=== PATIENT | male | born 1990 | race Caucasian/White ===

== ENCOUNTER → 2016-06-10 | Outpatient (CLI) | payer OTHER ==
[~2016-06-10] MED LIST: ASPCH81X PO; DIGO0.052; DIGO0.2519 PO; ENAL10TA88 PO
[2016-06-10 12:07] LABS: BASO % 0.5 %; BASO ABS # 0.03 K/uL (0-0.2); COMPLETE YES; EOS % 1.1 %; HEMATOCRIT 49.8 % (42-52); LYMPH % 25.2 %; LYMPH ABS # 1.61 K/uL (1.2-3.4); MEAN CELL VOLUME 89.6 fL (80-100); MEAN CORPUSCULAR HEMOGLOBIN 31.8 pg (25-34); MEAN CORPUSCULAR HGB CONC 35.5 g/dl (32-36); MEAN PLATELET VOLUME 11.8 fL (7.4-10.4); MONO % 6.3 %; NEUT % 66.9 %; PLATELET COUNT 167 K/uL (130-400); RED BLOOD COUNT 5.56 M/uL (4.7-6.1); WHITE BLOOD COUNT 6.38 K/uL (4.8-10.8)
[2016-06-10 12:27] LABS: ALT/SGPT 44 U/L (12-78); BLOOD UREA NITROGEN 9 mg/dl (7-18); BUN/CREATININE RATIO 10.7 (10-20); CALCIUM 8.8 mg/dl (8.5-10.1); CARBON DIOXIDE 26 mmol/L (21-32); CHLORIDE 109 mmol/L (98-107); CREATININE 0.88 mg/dl (0.60-1.40); GLUCOSE 78 mg/dl (70-99); POTASSIUM 4.1 mmol/L (3.5-5.1); SODIUM 142 mmol/L (136-145); URIC ACID 4.4 mg/dl (2.6-7.2)
[2016-06-10 12:30] LABS: ALB/GLOB RATIO 1.2 (0.9-2); ALKALINE PHOSPHATASE 59 U/L (45-117); AST/SGOT 21 U/L (15-37)
== END | disposition home or self-care (01) ==
LOC: C.LAB1850 11:01
PROVIDERS: ATTEND Family Medicine
DX: M79.676 Pain in unspecified toe(s) (principal); R10.9 Unspecified abdominal pain

== ENCOUNTER 2016-06-20 10:56 | Observation (INO) | payer BC, OTHER ==
[~2016-06-20] VITALS: Ht 168.9 cm; Wt 60.9 kg
[2016-06-20 11:56] LABS: BASO % 0.3 %; BASO ABS # 0.02 K/uL (0-0.2); COMPLETE YES; EOS % 0.3 %; IG% 0.1 %; LYMPH % 24.4 %; LYMPH ABS # 1.73 K/uL (1.2-3.4); MEAN CELL VOLUME 86.5 fL (80-100); MEAN CORPUSCULAR HEMOGLOBIN 31.8 pg (25-34); MEAN CORPUSCULAR HGB CONC 36.7 g/dl (32-36); MEAN PLATELET VOLUME 11.9 fL (7.4-10.4); MONO % 7.6 %; NEUT % 67.3 %; PLATELET COUNT 197 K/uL (130-400); RED BLOOD COUNT 6.01 M/uL (4.7-6.1)
--- NOTE | 2016-06-20 12:04 | DIAGNOSTIC IMAGING REPORT ---
CHEST 2 VIEWS ROUTINE CLINICAL HISTORY: Chest pain. Shortness of breath. COMPARISON STUDY: Chest radiograph August 03, 2008. FINDINGS: There are pediatric median sternotomy wires. Cardiac size is within normal limits. There is no pneumothorax or pleural effusion. There is no evidence of pulmonary edema. A device projects over the aortic arch. Mild reticulonodular interstitial thickening is noted. IMPRESSION: 1. No acute cardiopulmonary findings. 2. Subtle interstitial thickening, a nonspecific finding of questionable significance, slightly increased since prior exam. Electronically signed by: Mulugeta Velazquez M.D. 06/20/2016 12:03 PM Dictated Date/Time: 06/20/2016 12:01 PM
[2016-06-20 12:05] LABS: INR 1.3 (0.9-1.1); PARTIAL THROMBOPLASTIN RATIO 1.1
[2016-06-20 12:15] LABS: BUN/CREATININE RATIO 14.1 (10-20); CALCIUM 9.4 mg/dl (8.5-10.1); CREATININE 0.85 mg/dl (0.60-1.40); MAGNESIUM 2.2 mg/dl (1.8-2.4)
[2016-06-20 12:22] LABS: ALB/GLOB RATIO 1.3 (0.9-2)
[2016-06-20 12:33] LABS: THYROID STIMULATING HORMONE 1.31 uIu/ml (0.300-4.500)
[2016-06-20] MEDS ORDERED: ASPCH81X PO (12:44)
[2016-06-20] MEDS ORDERED: ENAL10TA88 PO (12:44)
[2016-06-20] MEDS ORDERED: DIGO0.052 (12:44)
[2016-06-20] MEDS ORDERED: ONDANSETRON INJ 2 MG/ML 2 ML VIAL IV PRN (15:00)
[2016-06-20] MEDS ORDERED: NITROGLYCERIN 0.4 MG SL PER TAB CHARGE SL PRN (15:00)
--- NOTE | 2016-06-20 15:57 | History and Physical ---
History & Physical Date & Time of Service: Jun 20, 2016 at 15:22 Chief Complaint: Chest Pain Primary Care Physician: Wm Calixto M.D. History of Present Illness Source: patient This is a 25 y/o male with left hypoplastic heart presented to the hospital complaining of left sided chest pain. Patient states that for past 2 days he is been having intermittent chest pain. Describes the pain as dull, rates it as 1/ 10 and non radiating. He always gets this type of dull pain, 1-2X in a month. However, this morning at work he suddenly felt sharp pain on the left side of his chest, rates it as 4/10 and non radiating. This prompt him to go to his PCP who send him directly to the hospital. He states that he is nauseated for past couple of days but denies vomiting. Complains of SOB when he had the sharp chest pain. Denies any other associated symptoms. Currently patient states that his chest pain has improved significantly, it is 1 /10 and dull. He has very mild headache (1/10) upon reaching the hospital. Denies SOB, palpitation, nausea, vomiting, weakness, abdominal pain, dysuria, or any other additional problems. He follows [facility] Dr. Brand in [place]. His last visit was on May 08, 2016 and everything was fine. He had 3 heart surgery in early . 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 Surgery History: (1) 3 Heart surgery in early (2) Inguinal hernia surgery in 2001 Family History (1) Mother: kidney problem (patient was not sure what type of problem she has) (2) Maternal Grandmother: DM Social History Smoking Status: Never Smoker Alcohol Use: occasionally Housing status: lives with family Occupational Status: employed Multi-Drug Resistant Organisms History of MDRO: No Allergies Coded Allergies: No Known Allergies (Unverified , 06/20/16) Home Medications Scheduled Aspirin (Aspirin Chewable), 81 MG PO DAILY Digoxin (Digox), 250 MCG PO BID Enalapril (Vasotec), 10 MG PO BID Review of Systems Constitutional: No chills, No fever, No sweats ENT: No sore throat Respiratory: No cough, No dyspnea at rest, No dyspnea on exertion, No shortness of breath, No sputum, No wheezing Cardiovascular: + chest pain (improved since this morning), No edema, No palpitations Abdomen: + nausea, No constipation, No diarrhea, No pain, No vomiting Musculoskeletal: No muscle pain Genitourinary - Male: No dysuria, No hematuria Neurologic: No numbness/tingling, No weakness Psychiatric: No anxiety Hematologic / Lymphatic: No abnormal bleeding/bruising Integumentary: No rash Physical Exam Vital Signs Date Time Temp Pulse Resp B/P Pulse Ox O2 Delivery O2 Flow Rate FiO2 06/20/16 13:33 62 21 91 Nasal Cannula 2.0 06/20/16 13:29 129/75 06/20/16 13:08 56 06/20/16 13:03 62 20 90 06/20/16 12:58 58 135/80 91 Nasal Cannula 2.0 06/20/16 12:38 62 20 91 06/20/16 12:33 63 16 123/67 92 Nasal Cannula 2.0 06/20/16 11:51 63 20 92 Nasal Cannula 2.0 06/20/16 11:46 62 20 06/20/16 11:41 61 13 89 06/20/16 11:36 66 30 90 06/20/16 11:31 61 22 91 06/20/16 11:26 62 20 110/74 90 06/20/16 11:21 73 22 91 06/20/16 11:16 64 19 90 06/20/16 11:15 92 Nasal Cannula 2.0 06/20/16 11:11 61 29 90 06/20/16 11:06 63 17 90 06/20/16 11:05 67 06/20/16 11:03 36.7 63 16 128/74 88 Room Air 06/20/16 11:03 89 Room Air 06/20/16 11:03 88 Room Air 06/20/16 11:02 128/74 General Appearance: WD/WN, no apparent distress Head: normocephalic, atraumatic Eyes: PERRL ENT: pharynx normal Neck: supple, trachea midline Respiratory/Chest: chest non-tender, lungs clear, normal breath sounds, no respiratory distress, no accessory muscle use Cardiovascular: regular rate, rhythm, no edema, no murmur, normal peripheral pulses Abdomen/GI: normal bowel sounds, non tender, soft Extremities/Musculoskelatal: no calf tenderness, no pedal edema, non-tender Neurologic/Psych: alert, normal mood/affect, oriented x 3 Skin: normal color, warm/dry, no rash Diagnostics Laboratory Results Results Past 24 Hours Test 06/20/16 11:15 06/20/16 14:46 Range/Units White Blood Count 7.10 4.8-10.8 K/uL Red Blood Count 6.01 4.7-6.1 M/uL Hemoglobin 19.1 14.0-18.0 g/dL Hematocrit 52.0 42-52 % Mean Corpuscular Volume 86.5 80-100 fL Mean Corpuscular Hemoglobin 31.8 25-34 pg Mean Corpuscular Hemoglobin Concent 36.7 32-36 g/dl Platelet Count 197 130-400 K/uL Mean Platelet Volume 11.9 7.4-10.4 fL Neutrophils (%) (Auto) 67.3 % Lymphocytes (%) (Auto) 24.4 % Monocytes (%) (Auto) 7.6 % Eosinophils (%) (Auto) 0.3 % Basophils (%) (Auto) 0.3 % Neutrophils # (Auto) 4.78 1.4-6.5 K/uL Lymphocytes # (Auto) 1.73 1.2-3.4 K/uL Monocytes # (Auto) 0.54 0.11-0.59 K/uL Eosinophils # (Auto) 0.02 0-0.5 K/uL Basophils # (Auto) 0.02 0-0.2 K/uL RDW Standard Deviation 41.2 36.4-46.3 fL RDW Coefficient of Variation 13.0 11.5-14.5 % Immature Granulocyte % (Auto) 0.1 % Immature Granulocyte # (Auto) 0.01 0.00-0.02 K/uL Prothrombin Time 14.0 9.0-12.0 SECONDS Prothromb Time International Ratio 1.3 0.9-1.1 Activated Partial Thromboplast Time 29.0 21.0-31.0 SECONDS Partial Thromboplastin Ratio 1.1 Sodium Level 141 136-145 mmol/L Potassium Level 4.0 3.5-5.1 mmol/L Chloride Level 108 98-107 mmol/L Carbon Dioxide Level 21 21-32 mmol/L Anion Gap 12.0 3-11 mmol/L Blood Urea Nitrogen 12 7-18 mg/dl Creatinine 0.85 0.60-1.40 mg/dl Est Creatinine Clear Calc Drug Dose 118.8 ml/min Estimated GFR () 139.4 Estimated GFR (Non- 120.3 BUN/Creatinine Ratio 14.1 10-20 Random Glucose 72 70-99 mg/dl Calcium Level 9.4 8.5-10.1 mg/dl Magnesium Level 2.2 1.8-2.4 mg/dl Total Bilirubin 1.0 0.2-1 mg/dl Aspartate Amino Transf (AST/SGOT) 31 15-37 U/L Alanine Aminotransferase (ALT/SGPT) 45 12-78 U/L Alkaline Phosphatase 63 45-117 U/L Total Creatine Kinase 83 39-308 U/L Creatine Kinase MB 0.8 0.5-3.6 ng/ml Creatine Kinase MB Ratio 1.0 0-3.0 Pro-B-Type Natriuretic Peptide 211 0-450 pg/ml Total Protein 8.1 6.4-8.2 gm/dl Albumin 4.5 3.4-5.0 gm/dl Globulin 3.6 2.5-4.0 gm/dl Albumin/Globulin Ratio 1.3 0.9-2 Thyroid Stimulating Hormone (TSH) 1.310 0.300-4.500 uIu/ml Chemistry Specimen Hemolysis Diagnostic Radiology CHEST 2 VIEWS ROUTINE CLINICAL HISTORY: Chest pain. Shortness of breath. COMPARISON STUDY: Chest radiograph August 03, 2008. FINDINGS: There are pediatric median sternotomy wires. Cardiac size is within normal limits. There is no pneumothorax or pleural effusion. There is no evidence of pulmonary edema. A device projects over the aortic arch. Mild reticulonodular interstitial thickening is noted. IMPRESSION: 1. No acute cardiopulmonary findings. 2. Subtle interstitial thickening, a nonspecific finding of questionable significance, slightly increased since prior exam. EKG Normal sinus rhythm, ST and T wave abnormality, consider inferior ischemia Impression Assessment and Plan This is a 25 y/o male with left hypoplastic heart presented to the hospital complaining of left sided chest pain. 1. Left sided Chest pain (Left hypoplastic heart) - Patient is admitted to [facility] for observation - EKG: Normal sinus rhythm, ST and T wave abnormality consider inferior ischemia - Requested to obtained EKG and Echo from [place] so we would have better understanding of his baseline - Trend serial cardiac enzymes, troponin and CK-MB q6h - Order complete Echo - pending - Digoxin level - pending - Continue Digoxin 0.25mg BID - Continue Enalapril 10mg daily - Continue ASA 81mg daily - Consulted Cardio and will appreciate their recommendation 2. DVT prophylaxis - Will hold anticoagulant at this moment - Ambulation 3. Code Status - Full code Level of Care Telemetry Resuscitation Status FULL RESUSCITATION VTE Prophylaxis VTE Risk Assessment Done? Y/N: Yes Risk Level: Moderate Note About 45 minutes Assessment and Plan Attending Addendum: I have physically seen and examined this patient, have directed their medical care, have supervised the medical residents activities, and agree with the H&P as noted above, with the following changes: NONE The patient is awake, well-developed and adequately nourished, alert and oriented 3, normocephalic and atraumatic, lying in bed and in no acute distress. HEENT--PERRL, EOMI, mucous membranes and oropharynx moist. Neck--supple, no JVD or bruits, thyroid normal, trachea midline, no adenopathy. Heart--normal S1 and S2, no extra beats, no murmurs, rubs or gallops. Lungs--clear bilaterally with good air movement, no respiratory distress, no accessory muscle use. Abdomen--normal bowel sounds and soft, nontender and nondistended, no hernias or masses, no organomegaly. Extremities--no cyanosis, clubbing or edema. There are good distal pulses b/l. Dermatologic--normal skin turgor, normal color, warm and dry, no abnormal lymph nodes, no rash. Neurologic--cranial nerves II through XII grossly intact, motor and sensory examination normal. Rheumatologic--normal range of motion, nontender, muscles and joints. Psychiatric--normal affect. Assessment and Plan: Precordial chest pain/history of hypoplastic heart--patient admitted to the telemetry unit, for serial cardiac enzymes, cardiac rhythm monitoring and a 2-D echocardiogram with Dopplers. EKG shows some nonspecific ST-T changes inferiorly and laterally. He has signed a records release to get copies of most recent EKG and echocardiogram from [facility] where he follows routinely, for comparison. We'll continue current medications of aspirin 81 mg by mouth daily enalapril 10 mg by mouth daily and digoxin liquid, with mother to bring in his home bottles to determine exact Rx. A digoxin level is been added current laboratories. We'll consult cardiology see patient in the a.m. Polycythemia--hemoglobin is mildly elevated at 19.1, suspect this compensatory for his underlying congenital heart disease, we'll recheck in a.m, and look to compare to previous laboratories.
[2016-06-20] MEDS ORDERED: IV FLUIDS COMPLETED PRN (16:30)
[2016-06-20] MEDS ORDERED: DIGO0.2519 PO (17:59)
[2016-06-20 18:53] VITALS: BP 125/68; PULSE 61; TEMP 36.6; O2SAT 93; Ht 168.9 cm; Wt 60.9 kg
[2016-06-20 19:52] VITALS: BP 124/67; PULSE 62; TEMP 36.8; O2SAT 93
[2016-06-20] MEDS: DIGOXIN 0.25 MG TAB PO SCH (21:00)
--- NOTE | 2016-06-20 21:40 | EMERGENCY ROOM VISIT NOTE ---
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 on arrival: pain #3/0-10 scale. states "the o2 makes it better" History of Present Illness The patient is a 25 year old male who presents to the Emergency Room with complaints of left-sided chest pain which began suddenly while at work. The patient has a history of hypoplastic left heart syndrome and is seen by [facility]. He states that he sees him every 6 months and typically has cardiac MRIs. He did have a heart catheterization a few years ago due to right ventricle dilation. The patient states that while at work today, he developed a sharp, stabbing left-sided chest pain. He rates the initial discomfort a 5/10 , but states that has since improved to a 2/10. He states that the chest pain has since been improving. He reports that he normally has oxygen saturations from 90-94% on room air. He reports that in the ambulance, his oxygen saturations were in the 80s and improved with 2 L of oxygen. He reports that his chest pain also improved with oxygen. He does report a history of anxiety and states he has had increased stress recently due to a new job and an upcoming wedding. He denies any associated shortness of breath, palpitations, nausea, vomiting, recent illness or fevers. Review of Systems A complete 10-point Review of Systems was discussed with the patient, with pertinent positives and negatives listed in the History of Present Illness. All remaining Review of Systems questions can be considered negative unless otherwise specified. Past Medical/Surgical History Medical Problems: (1) Chest pain Social History Smoking Status: Light Tobacco Smoker Occupation Status: employed Current/Historical Medications Scheduled Aspirin (Aspirin Chewable), 81 MG PO DAILY Digoxin (Digox), 250 MCG PO BID Enalapril (Vasotec), 10 MG PO BID Allergies Coded Allergies: No Known Allergies (Unverified , 06/20/16) Physical Exam Vital Signs Date Time Temp Pulse Resp B/P Pulse Ox O2 Delivery O2 Flow Rate FiO2 06/20/16 18:53 36.6 61 20 125/68 93 Nasal Cannula 2.0 06/20/16 17:52 36.7 71 18 119/55 91 06/20/16 17:38 71 18 91 06/20/16 17:28 119/55 06/20/16 17:08 73 16 91 06/20/16 16:58 121/64 06/20/16 16:38 76 18 06/20/16 16:33 66 19 06/20/16 16:28 133/67 06/20/16 16:03 61 19 91 Room Air 06/20/16 15:58 111/64 06/20/16 15:33 55 10 91 06/20/16 15:28 119/72 06/20/16 15:08 87 19 91 Room Air 06/20/16 14:58 106/67 06/20/16 14:38 68 24 92 Room Air 06/20/16 14:28 124/78 06/20/16 14:08 61 13 90 06/20/16 13:58 119/68 06/20/16 13:38 65 13 92 06/20/16 13:33 62 21 91 Nasal Cannula 2.0 06/20/16 13:29 129/75 06/20/16 13:08 56 06/20/16 13:03 62 20 90 06/20/16 12:58 58 135/80 91 Nasal Cannula 2.0 06/20/16 12:38 62 20 91 06/20/16 12:33 63 16 123/67 92 Nasal Cannula 2.0 06/20/16 11:51 63 20 92 Nasal Cannula 2.0 06/20/16 11:46 62 20 06/20/16 11:41 61 13 89 06/20/16 11:36 66 30 90 06/20/16 11:31 61 22 91 06/20/16 11:26 62 20 110/74 90 06/20/16 11:21 73 22 91 06/20/16 11:16 64 19 90 06/20/16 11:15 92 Nasal Cannula 2.0 06/20/16 11:11 61 29 90 06/20/16 11:06 63 17 90 06/20/16 11:05 67 2/16/17 11:03 36.7 63 16 128/74 88 Room Air 06/20/16 11:03 89 Room Air 06/20/16 11:03 88 Room Air 06/20/16 11:02 128/74 Pain Rating (0-10): 2.0 Physical Exam VITALS: Vitals are noted on the nurse's note and reviewed by myself. Vital signs stable. GENERAL: This is a 25-year-old male, in no acute distress, nondiaphoretic, well- developed well-nourished. SKIN: Capillary reflex less than 2 seconds. HEENT: Normocephalic. PERRLA. EOMI. Nares patent. Mucous membranes slightly dry. Neck is supple without nuchal rigidity. HEART: Regular rate and rhythm. III/IV diastolic murmur. LUNGS: Clear to auscultation bilaterally without wheezes, rales or rhonchi. No retractions or accessory muscle use. ABDOMEN: Positive bowel sounds x 4. Soft, nontender. NEURO: Patient was alert and oriented to person place and time. Medical Decision & Procedures ER Provider Diagnostic Interpretation: CHEST 2 VIEWS ROUTINE CLINICAL HISTORY: Chest pain. Shortness of breath. COMPARISON STUDY: Chest radiograph August 03, 2008. FINDINGS: There are pediatric median sternotomy wires. Cardiac size is within normal limits. There is no pneumothorax or pleural effusion. There is no evidence of pulmonary edema. A device projects over the aortic arch. Mild reticulonodular interstitial thickening is noted. IMPRESSION: 1. No acute cardiopulmonary findings. 2. Subtle interstitial thickening, a nonspecific finding of questionable significance, slightly increased since prior exam. Laboratory Results 06/20/16 11:15 Red Blood Count 6.01, Mean Corpuscular Volume 86.5, Mean Corpuscular Hemoglobin 31.8, Mean Corpuscular Hemoglobin Concent 36.7, Mean Platelet Volume 11.9, Neutrophils (%) (Auto) 67.3, Lymphocytes (%) (Auto) 24.4, Monocytes (%) (Auto) 7.6, Eosinophils (%) (Auto) 0.3, Basophils (%) (Auto) 0.3, Neutrophils # (Auto) 4.78, Lymphocytes # (Auto) 1.73, Monocytes # (Auto) 0.54, Eosinophils # (Auto) 0.02, Basophils # (Auto) 0.02 06/20/16 11:15 Test 06/20/16 11:15 06/20/16 17:28 White Blood Count 7.10 K/uL (4.8-10.8) Red Blood Count 6.01 M/uL (4.7-6.1) Hemoglobin 19.1 g/dL (14.0-18.0) Hematocrit 52.0 % (42-52) Mean Corpuscular Volume 86.5 fL (80-100) Mean Corpuscular Hemoglobin 31.8 pg (25-34) Mean Corpuscular Hemoglobin Concent 36.7 g/dl (32-36) Platelet Count 197 K/uL (130-400) Mean Platelet Volume 11.9 fL (7.4-10.4) Neutrophils (%) (Auto) 67.3 % Lymphocytes (%) (Auto) 24.4 % Monocytes (%) (Auto) 7.6 % Eosinophils (%) (Auto) 0.3 % Basophils (%) (Auto) 0.3 % Neutrophils # (Auto) 4.78 K/uL (1.4-6.5) Lymphocytes # (Auto) 1.73 K/uL (1.2-3.4) Monocytes # (Auto) 0.54 K/uL (0.11-0.59) Eosinophils # (Auto) 0.02 K/uL (0-0.5) Basophils # (Auto) 0.02 K/uL (0-0.2) RDW Standard Deviation 41.2 fL (36.4-46.3) RDW Coefficient of Variation 13.0 % (11.5-14.5) Immature Granulocyte % (Auto) 0.1 % Immature Granulocyte # (Auto) 0.01 K/uL (0.00-0.02) Prothrombin Time 14.0 SECONDS (9.0-12.0) Prothromb Time International Ratio 1.3 (0.9-1.1) Activated Partial Thromboplast Time 29.0 SECONDS (21.0-31.0) Partial Thromboplastin Ratio 1.1 Anion Gap 12.0 mmol/L (3-11) Est Creatinine Clear Calc Drug Dose 118.8 ml/min Estimated GFR () 139.4 Estimated GFR (Non- 120.3 BUN/Creatinine Ratio 14.1 (10-20) Calcium Level 9.4 mg/dl (8.5-10.1) Magnesium Level 2.2 mg/dl (1.8-2.4) Total Bilirubin 1.0 mg/dl (0.2-1) Aspartate Amino Transf (AST/SGOT) 31 U/L (15-37) Alanine Aminotransferase (ALT/SGPT) 45 U/L (12-78) Alkaline Phosphatase 63 U/L (45-117) Total Creatine Kinase 83 U/L (39-308) Pro-B-Type Natriuretic Peptide 211 pg/ml (0-450) Total Protein 8.1 gm/dl (6.4-8.2) Albumin 4.5 gm/dl (3.4-5.0) Globulin 3.6 gm/dl (2.5-4.0) Albumin/Globulin Ratio 1.3 (0.9-2) Thyroid Stimulating Hormone (TSH) 1.310 uIu/ml (0.300-4.500) Chemistry Specimen Hemolysis Digoxin Level 0.4 ng/ml (0.8-2.0) ECG Indication: chest pain Rate (beats per minute): 64 Rhythm: normal sinus Findings: T-wave inversion (Inferior), no acute ischemic change, no ectopy Change: no significant change Medical Decision Differential diagnosis includes acute coronary syndrome, pulmonary embolism, pneumothorax, pericarditis, myocarditis, endocarditis, anxiety, musculoskeletal pain, GERD, costochondritis, among others. The patient was evaluated as above. Labs were drawn and IV access was obtained. Imaging studies were performed and read by radiology as above. The patient was reassessed multiple times during their stay in the emergency department and remained in stable condition. The patient is a 25-year-old male with significant cardiac history who presents today complaining of of such chest pain. Labs revealed no leukocytosis. Hemoglobin is slightly elevated. Troponin was not elevated. The patient is not dehydrated. I was concerned due to the patient's extensive cardiac history and mild hypoxia today. I did recommend that he be admitted for observation given his history. The patient was agreeable to this. I spoke with the [facility] hospitalist, who agreed to evaluate the patient but did request that I speak with cardiology. I spoke with Dr. Diaz, who was comfortable seeing the patient, but did recommend speaking with the patient's city library director to see if they had any recommendations. I spoke with Dr. Brand from [facility] [place], who recommended rechecking the patient's CBC due to his polycythemia. He also recommended ruling out pulmonary embolism due to the patient's hypoxia and chest pain. The plan of care was discussed with the [facility] hospitalist. The patient's case was reviewed with Dr. Allen, ED attending physician, who agreed with my assessment and treatment plan. Impression Primary Impression: Precordial chest pain Departure Information Dispostion Still a Patient Condition GOOD Referrals Wm Calixto M.D. (PCP) Forms HOME CARE DOCUMENTATION FORM, IMPORTANT VISIT INFORMATION Patient Instructions My [facility]
[2016-06-21] VITALS (7 sets, daily range): BP systolic 102–133; BP diastolic 57–76; PULSE 57–68; TEMP 36.5–36.9; O2SAT 90–94
[2016-06-21 06:28] LABS: HEMATOCRIT 47.1 % (42-52); MEAN CELL VOLUME 85.8 fL (80-100); MEAN CORPUSCULAR HEMOGLOBIN 30.6 pg (25-34); MEAN CORPUSCULAR HGB CONC 35.7 g/dl (32-36); MEAN PLATELET VOLUME 11.1 fL (7.4-10.4); PLATELET COUNT 174 K/uL (130-400); RED BLOOD COUNT 5.49 M/uL (4.7-6.1)
[2016-06-21 06:57] LABS: BLOOD UREA NITROGEN 16 mg/dl (7-18); BUN/CREATININE RATIO 18.6 (10-20); CALCIUM 8.4 mg/dl (8.5-10.1); CARBON DIOXIDE 23 mmol/L (21-32); CHLORIDE 110 mmol/L (98-107); CREATININE 0.86 mg/dl (0.60-1.40); GLUCOSE 86 mg/dl (70-99); SODIUM 143 mmol/L (136-145)
[2016-06-21] MEDS: DIGOXIN 0.25 MG TAB PO SCH (07:54)
[2016-06-21] MEDS ORDERED: ENALAPRIL MALEATE 10 MG TAB PO SCH (09:00)
[2016-06-21] MEDS ORDERED: PNEUMOCOCCAL ADMINISTRATION CHARGE ONE (09:00)
[2016-06-21] MEDS ORDERED: PNEUMOCOCCAL POLYSACCHARIDES 25 MCG/0.5 ML VIAL/SYR IM. ONE (09:00)
[2016-06-21] MEDS ORDERED: ASPIRIN 81 MG ECTAB PO SCH (09:00)
--- NOTE | 2016-06-21 10:01 | ECHOCARDIOGRAM REPORT ---
*NOTICE TO RECEIVING [employer] This information is strictly Confidential and protected under [place] law. [place] law prohibits you from making any further disclosure of this information unless further disclosure is expressly permitted by the written consent of the person to whom it pertains or is authorized by law. A general authorization for the release of medical or other information is not sufficient for this purpose. Hospital accepts no responsibility if the information is made available to any other person, INCLUDING THE PATIENT. Interpretation Summary * Name: VIJI MALDONADO Study Date: 06/21/2016 07:43 AM BP: 114/65 mmHg * Patient Location: C.2T\S\S231\S\1 HR: 55 * : 1990 (M/d/yyyy) Gender: Male Height: 66 in * Age: 25 yrs Ethnicity: [place] Weight: 141 lb * Ordering Physician: Pillo Hinton * Referring Physician: Self, Referred * Performed By: Rosaura Johnson RCS * * Reason For Study: HYPOPLASTIC HEART * BSA: 1.7 m2 * -- Conclusions -- * Sinsus bradycardia was present at the time of the echodiogram. Procedure Details * A complete two-dimensional transthoracic echocardiogram was performed (2D, M-mode, Doppler and color flow Doppler). Left Ventricle * The left heart is diminutive and hypoplastic. Right Ventricle * The single ventricle is trabeculated with grossly normal systolic function. Atria * The right atrium receives the systemic venous return. The chamber size is normal. Tricuspid Valve * The tricuspid valve is not well visualized, but is grossly normal. * There is no tricuspid stenosis. * Significant tricuspid regurgitation is absent. Aortic Valve * The functional aotic valve is not well visualized but is non-stenotic. Moderate central regurgitation is present. Pericardium/Pleural * There is no pericardial effusion.
--- NOTE | 2016-06-21 12:00 | Cardiology Consultation ---
Cardiology Consultation Date of Consultation: Jun 21, 2016 History of Present Illness Keshav Sharpe is a 25 year old male seen in cardiology consultation per the request of Dr Hinton for the evaluation of chest pain. 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 He follows with Dr Rogelio Brand of Congenital Cardiology at [facility] on a 6 month basis and had his last visit last month in May,. Patient presents with concerns of chest discomfort. He notes he has two separate chest pains. The first is a discomfort with onset 4 days ago that he feels a "dull heart beat" on his entire chest like a "drum beating". He denies sensation of racing heart rate. He noted this at work. He went to the gym than evening and exercised on a step machine with no exertional symptoms. He noticed recurrence of symptoms at work on Friday. Yesterday while at work, he had a recurrence of symptoms and he therefore went to see his primary care provider and was referred to the emergency department. He describes a separate discomfort that is a sharp pain on his left side that does not come on with exertion. He has a long-standing history of chest pain that has been associated with emotional distress and his spoken with his primary driver trainee about this in the past as recently as approximately a month ago. He describes having had a Holter monitor with his routine appointment last month that he believes was normal. Cardiac enzymes have been negative thus far. The patient does not describe any recent infectious type symptoms. He denies any pleuritic component of the chest discomfort. At present he is feeling well. History Past Medical History: Congenital hypoplastic left heart syndrome Past Surgical History: Patient underwent staged [place] procedure consisting of 3 surgeries the first of which occurred shortly after , in the third surgery took place in 1991 all performed at [facility]. 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 Allergies Coded Allergies: No Known Allergies (Unverified , 06/20/16) Medications Reported Home Medications Medications Dose Route/Sig Max Daily Dose Days Date Category Digox (Digoxin) 250 Mcg Tab 250 Mcg PO BID 06/20/16 Reported Aspirin Chewable (Aspirin) 81 Mg Chew 81 Mg PO DAILY 06/20/16 Reported Vasotec (Enalapril Maleate) 10 Mg Tab 10 Mg PO BID 06/20/16 Reported Physical Exam Vital Signs (Last 8hrs): Last 8 Hrs Date Time Temp Pulse Resp B/P Pulse Ox O2 Delivery O2 Flow Rate FiO2 06/21/16 08:00 90 Room Air 06/21/16 07:54 62 06/21/16 07:45 36.5 61 20 114/65 90 Room Air 06/21/16 04:30 36.9 58 16 102/57 91 Room Air General Appearance: Alert and Oriented x3. NAD. Head: Normocephalic Atraumatic. Eyes: PERRLA, EOMI, conjunctiva and sclera clear Neck: Supple. No carotid bruits noted. No JVD. No HJD. Respiratory: Breath sounds clear to auscultation bilaterally. No w/r/r. Cardiovascular: 1/6 diastolic murmur heard best at the right sternal border Chest: Well-healed midline sternotomy incision, stable sternum Abdomen: Normal bowel sounds, soft nontender. no abdominal bruits. Extremities: No edema, no clubbing or cyanosis. distal pulses 2/4 bilaterally. Neuro: No focal deficits. Psychiatric: Normal affect. Data Last Resulted 06/21/16 06:00 Last Resulted 06/21/16 06:00 Past 24 Hours Test 06/20/16 14:46 06/20/16 17:28 06/20/16 20:46 06/20/16 23:20 Range/Units Creatine Kinase MB Ratio 0-3.0 Creatine Kinase MB 0.6 0.6 0.5-3.6 ng/ml Troponin I < 0.015 < 0.015 0-0.045 ng/ml Test 06/21/16 06:00 Range/Units Creatine Kinase MB 0.8 0.5-3.6 ng/ml Creatine Kinase MB Ratio 0-3.0 Troponin I < 0.015 0-0.045 ng/ml Imaging: Chest x-ray was within normal limits EKG: Performed 06/20/16 11:13 AM revealed normal sinus rhythm at 64 bpm, inferior and lateral ST-T wave abnormality. RVH likely based on morphology of lead V1 and V2 Telemetry reviewed: Sinus rhythm and sinus bradycardia noted, the longest R to R interval was 2.[address] at 1:54 AM and was consistent with sinus arrhythmia Assessment & Plan Impression: 25-year-old male presents with chest discomfort, atypical for cardiac etiology in the setting of recent emotional stress. He is completely pain-free at the present time, and he notes a long-standing history of occasional stress-related chest discomforts. His cardiac enzymes are negative 3. His EKG is abnormal, but I would anticipate that given his history of congenital heart disease, but he likely has an abnormal baseline EKG. He underwent a transthoracic echocardiogram. Preliminary review by the undersigned revealed no evidence of pericardial effusion, and grossly normal systemic ventricular function, with moderate regurgitation of the subaortic valve. No valvular stenosis was present. Telemetry without significant arrhythmia. Discussion/recommendations: Await formal interpretation of his echocardiogram from [facility] pediatric Department, the images were sent electronically. I've requested his EKG and last Holter monitor as well as his past echo report. I have paged his primary driver trainee, Dr. Brand and will discuss case with him. I anticipate that the patient will likely be able to be discharged without further evaluation, as he has ruled out for myocardial infarction,has no clinical evidence of congestive heart failure, no arrhythmias noted he does have an apparent history of long-standing chest pains per his description. Further recommendations be forthcoming. Torres Devlin,
--- NOTE | 2016-06-21 12:50 | Cardiology Progress Note ---
Cardiology Progress Note Outside records were received. The patient's recent progress note from his visit with Dr. Brand at [facility] dated 05/08/2016 was received. It describes that the patient does have a history of intermittent left-sided chest discomfort that has been present in the past and is felt to be due to anxiety. The patient apparently had a cardiac MRI in January 2014 which demonstrated moderate right ventricular dilatation with normal ejection fraction, consistent with the echocardiogram visualized today. He is noted moderate medial aortic valve insufficiency. His activity tolerance has been stable. A Holter monitor had been performed on 05/08/2016 which revealed sinus rhythm with frequent PVCs and frequent PACs, but no sustained ventricular or atrial arrhythmias. It is noted that the frequency of the ventricular ectopy has decreased since the last Holter monitor in July 2015. Unfortunately, no prior EKG is available for comparison. I had personally spoken to the doctor's office and [facility] and requested EKG but no tracing is available. The patient notes does not recall having had a recent EKG as an outpatient for as long as he can remember. Repeat EKG performed at this institution at 12:25 PM today reveals continued inferior and lateral ST deviation, which in the setting of a patient with risk factors for ischemic heart disease would be consistent with ischemia, but I would anticipate that this is this patient's postoperative baseline. Overall, I think that the chest discomfort that prompted this hospital evaluation is consistent with his past history of atypical chest pains and compatible with anxiety. He does not have a pleuritic component. He is not tachycardic, and has had no recent travel, I don't think the likelihood of this being due to venous thromboembolic disease is low. He the patient feels well. Based on his outpatient records he does have a baseline pulse oximetry in the low 90s as noted on his past outpatient visits. At present, I would like to wait for the official interpretation of his echocardiogram by the [facility] pediatric group at [facility], the images were sent electronically, and I anticipate report will her right by fax, as long as there are no new concerning changes noted on the echo report, would anticipate patient can be discharged home on his chronic cardiac medications. The patient already has a cardiac MRI planned at [facility] in July 2016 to assess the right ventricular volume is assessment of how his cardiac status is doing relative to his aortic valve regurgitation. He was encouraged to keep this appointment.
--- NOTE | 2016-06-21 14:15 | Cardiology Progress Note ---
Cardiology Progress Note Echocardiogram over-read performed by [facility] consistent with stable findings. patient is stable from my perspective for discharge. He should keep his planned cardiology follow-up with [facility], including cardiac MRI as planned in July,.
--- NOTE | 2016-06-21 15:50 | Discharge Instructions ---
Discharge Instructions Admission Reason for Admission: Chest Pain Discharge Discharge Diagnosis / Problem: Congenital hypoplastic left heart syndrome Discharge Goals Goal(s): Decrease discomfort, Improve function, Increase independence, Improve disease control, Improve nutritional status, Learn about illness, Diagnostic testing, Therapeutic intervention, Prevent Disease Progression, Specific goals Activity Recommendations Activity Limitations: resume your previous activity . Instructions / Follow-Up Instructions / Follow-Up you have chest pain with history of Congenital hypoplastic left heart syndrome floor technician saw you feel you are stable to go home please keep appointment with your floor technician in [facility], - you need to follow up with your primary care physician in 1 week, - take medication as instructed, never overdose or any misuse, or take with alcohol, because misuse of medicine may cause organ damage or , call your primary care physician if have questions of medicaitons. - call your primary care physician OR go to local emergency room if has any fever/chill, chest pain, shortness of breathing, nausea/vomiting/abdominal pain , facial droop/slurry speech/local weakness, or if has any questions. Current Hospital Diet Patient's current hospital diet: AHA Diet (Heart Healthy) Discharge Diet Recommended Diet: Regular Diet Pending Studies Studies pending at discharge: no Laboratory Results Meds Administered (Past 24Hrs) Medications (Trade) Dose Ordered Sig/Irving Route Start Time Stop Time Status Last Admin Dose Admin Aspirin (Ecotrin Tab) 81 mg DAILY PO 06/21/16 09:00 07/21/16 08:59 06/21/16 07:54 81 MG Enalapril Maleate (Vasotec Tab) 10 mg DAILY PO 06/21/16 09:00 07/21/16 08:59 06/21/16 07:54 10 MG Digoxin (Lanoxin Tab) 0.25 mg BID PO 06/20/16 21:00 07/20/16 20:59 06/21/16 07:54 0.25 MG Medical Emergencies . Who to Call and When: Medical Emergencies: If at any time you feel your situation is an emergency, please call 911 immediately. . Non-Emergent Contact Non-Emergency issues call your: Primary Care Provider, Clinical Program Consultant . . "Provider Documentation" section prepared by Elkin Jimenez. VTE Core Measure Inpt VTE Proph given/why not?: SCD's
--- NOTE | 2016-06-21 17:06 | Discharge Summary ---
Discharge Summary Admission Date: Jun 20, 2016 at 15:17 Discharge Date: Jun 21, 2016 Principal Diagnosis: chest pain Problems/Secondary Diagnoses: history of Congenital hypoplastic left heart syndrome Procedures: No Consultations: Mixing House Operator Medication Reconciliation Continued Medications: Aspirin (Aspirin Chewable) 81 Mg Chew 81 MG PO DAILY Digoxin (Digox) 250 Mcg Tab 250 MCG PO BID Enalapril (Vasotec) 10 Mg Tab 10 MG PO BID, TAB Discharge Exam Doing well, no chest pain, no other complaining, conversational, smiling Review of Systems: Constitutional: No chills, No fatigue, No fever, No problem reported, No sweats, No weakness, No weight loss Eyes: No diplopia, No discharge, No eye pain, No problem reported, No redness, No worsening of vision ENT: No dental problems, No hearing loss, No nasal symptoms, No problem reported, No sore throat, No tinnitus, No trouble swallowing, No unusual epistaxis Respiratory: No cough, No dyspnea at rest, No dyspnea on exertion, No hemoptysis, No problem reported, No shortness of breath, No sputum, No wheezing Cardiovascular: No PND, No chest pain, No claudication, No edema, No orthopnea, No palpitations, No problem reported Abdomen: No GI bleeding, No constipation, No diarrhea, No nausea, No pain, No problem reported, No vomiting Musculoskeletal: No calf pain, No joint pain, No muscle pain, No problem reported, No swelling Genitourinary - Male: No dysuria, No hematuria, No impotence, No lesions, No penile discharge, No problem reported, No urinary frequency, No urinary hesitancy, No urinary incontinence, No urinary retention, No urinary urgency Neurologic: No balance problems, No memory loss, No numbness/tingling, No paralysis, No problem reported, No vertigo, No weakness Psychiatric: No anhedonism, No anxiety, No depression symptoms, No insomnia , No problem reported, No substance abuse Endocrine: No excessive thirst, No excessive urination, No fatigue, No problem reported Hematologic / Lymphatic: No abnormal bleeding/bruising, No clotting problems , No night sweats, No problem reported, No swollen lymph nodes Integumentary: No bleeding, No color change, No itch, No new/changing skin lesions, No problem reported, No rash Physical Exam: General Appearance: WD/WN, no apparent distress Eyes: normal inspection, PERRL ENT: normal ENT inspection, hearing grossly normal Neck: supple, no adenopathy Respiratory/Chest: chest non-tender, normal breath sounds, no respiratory distress, + decreased breath sounds Cardiovascular: regular rate, rhythm, no edema, no gallop, no JVD, + systolic murmur Abdomen / GI: normal bowel sounds, non tender, soft, no organomegaly, no pulsatile mass Extremities: normal inspection, no calf tenderness, normal capillary refill Neurologic/Psychiatric: house father II-XII nml as tested, no motor/sensory deficits , alert, normal mood/affect, normal reflexes, oriented x 3 Skin: normal color, warm/dry Hospital Course 25 year old male In the hospital because of chest pain. 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 He follows with Dr Rogelio Brand of Congenital Cardiology at [facility] on a 6 month basis and had his last visit last month in May,. He concerns of chest discomfort, for 4 days, therefore he come into the emergency room. Denied palpitation, sharp chest pain, shortness of breath Mixing House Operator saw him, has communication with the cardiology in [facility], and per report from artist color separation Echocardiogram over-read performed by [facility] consistent with stable findings. Per cardiology patient is stable for discharge. I told patient to keep his planned cardiology follow-up with [facility] , including cardiac MRI as planned in July,. Cardiac enzymes have been negative Instructions / Follow-Up you have chest pain with history of Congenital hypoplastic left heart syndrome artist color separation saw you feel you are stable to go home please keep appointment with your artist color separation in , - you need to follow up with your primary care physician in 1 week, - take medication as instructed, never overdose or any misuse, or take with alcohol, because misuse of medicine may cause organ damage or , call your primary care physician if have questions of medicaitons. - call your primary care physician OR go to local emergency room if has any fever/chill, chest pain, shortness of breathing, nausea/vomiting/abdominal pain , facial droop/slurry speech/local weakness, or if has any questions. Total Time Spent: Less than 30 minutes This includes examination of the patient, discharge planning, medication reconciliation, and communication with other providers. Discharge Instructions Please refer to the electronic Patient Visit Report (Discharge Instructions) for additional information. Additional Copies To Wm Calixto M.D.
== END 2016-06-21 17:15 | disposition home or self-care (01) ==
LOC: ENRESERVTM → ENRESERVDT → EDBD 10:56 → C.EDC 10:57 → C.2T 15:17 → UNDOADMOB 19:02 → C.2T 19:02
PROVIDERS: ADMIT Hospitalist; ATTEND Hospitalist
DX: R07.2 Precordial pain (principal); R94.31 Abnormal electrocardiogram [ECG] [EKG]; Q24.8 Other specified congenital malformations of heart; F17.200 Nicotine dependence, unspecified, uncomplicated; Z79.82 Long term (current) use of aspirin; Z83.3 Family history of diabetes mellitus